=== PATIENT | female | born 1985 | race Caucasian/White ===

== ENCOUNTER 2016-12-29 03:34 | Emergency (ER) | payer SELFPAY ==
[~2016-12-29] VITALS: Ht 167.6 cm; Wt 58.5 kg
--- NOTE | 2016-12-29 04:36 | NUR ---
Patient discharged to home in stable conditon. Written and verbal after care instructions given. Patient verbalizes understanding of instructions. Walked out of ER with steady gait
[2016-12-29 04:47] LABS: *URINE HCG, QUAL NEGATIVE (NEGATIVE)
== END 2016-12-29 04:49 | disposition home or self-care (01) ==
LOC: ER 03:34
DX: R19.7 Diarrhea, unspecified (principal); R11.0 Nausea; R42 Dizziness and giddiness; Z88.6 Allergy status to analgesic agent; Z88.1 Allergy status to other antibiotic agents
CPT/HCPCS: 84703; 99283; A4663

== ENCOUNTER 2018-08-10 12:05 | Emergency (ER) | payer SELFPAY ==
[~2018-08-10] VITALS: Ht 167.6 cm; Wt 55.3 kg
== END 2018-08-10 13:13 | disposition home or self-care (01) ==
LOC: ER 12:08
DX: I88.8 Other nonspecific lymphadenitis (principal); Z88.6 Allergy status to analgesic agent; Z88.2 Allergy status to sulfonamides; Z88.8 Allergy status to other drugs, medicaments and biological substances
CPT/HCPCS: A4663

== ENCOUNTER 2018-11-02 17:36 | Emergency (ER) | payer MEDICAID ==
[~2018-11-02] VITALS: Ht 167.6 cm; Wt 56.7 kg
[2018-11-02 19:02] LABS: *BILIRUBIN,URIN 2+ (NEGATIVE); *BLOOD, URINE 3+ (NEGATIVE); *CLARITY,URINE TURBID (CLEAR); *COLOR,URINE RED (YELLOW); *KETONES,URINE 1+ (NEGATIVE); LEUKOCYTE ESTERASE ,URINE 3+ (NEGATIVE); NITRITE, URINE POSITIVE (NEGATIVE); PH,URINE 8.5 (5.0-8.0); UGLUCOSE NEGATIVE (NEGATIVE)
[2018-11-02 19:11] LABS: *URINE HCG, QUAL NEGATIVE (NEGATIVE)
[2018-11-02 19:18] LABS: BACTERIA,URINE NONE SEEN /HPF (NONE SEEN); RBC,URINE TNTC /HPF (0-3); SQUAMOUS EPITHELIAL CELL,UR NONE SEEN /HPF (NONE SEEN)
[2018-11-02] MEDS ORDERED: CEFTRIAXONE 1 G in IV DEXTROSE 5% 50 ML IV ONE (19:30)
[2018-11-02] MEDS ORDERED: IV NORMAL SALINE 1000 ML BAG IV ONE ×2 (19:30→20:45)
[2018-11-02] MEDS ORDERED: CEFTRIAXONE 1 G VIAL ONE (19:33)
[2018-11-02] MEDS ORDERED: HYDROMORPHONE 1 MG/1 ML DISP.SYRIN IV ONE (19:45)
[2018-11-02] MEDS ORDERED: ONDANSETRON IV *ER 4 MG/2 ML VIAL IV ONE (19:45)
[2018-11-02] MEDS ORDERED: HYDROMORPHONE 1 MG/1 ML DISP.SYRIN ONE (19:49)
[2018-11-02] MEDS ORDERED: ONDANSETRON 4 MG/2 ML VIAL ONE (19:49)
[2018-11-02] MEDS ORDERED: ACETAMINOPHEN 325 MG TABLET PO ONE (20:00)
[2018-11-02] MEDS ORDERED: ACETAMINOPHEN 325 MG TABLET ONE (20:01)
[2018-11-02] MEDS ORDERED: ACETAMINOPHEN/CODEINE 300-30 MG TABLET ONE (20:13)
[2018-11-02] MEDS ORDERED: ACETAMINOPHEN/CODEINE 300-30 MG TABLET PO ONE (20:15)
[2018-11-02 21:52] VITALS: BP 106/68
--- NOTE | 2018-11-02 21:53 | NUR ---
IV removed. Catheter intact and site benign. Pressure and 4x4 gauze applied to site. No bleeding noted.
--- NOTE | 2018-11-02 21:55 | NUR ---
Patient discharged to home in stable conditon. Written and verbal after care instructions given. Patient verbalizes understanding of instructions. Patient instructed not to drive. Patient [place] Patient ambulated out of ER with stable gait.
== END 2018-11-02 21:56 | disposition home or self-care (01) ==
LOC: ER 17:36
DX: N39.0 Urinary tract infection, site not specified (principal); Z88.2 Allergy status to sulfonamides; Z88.8 Allergy status to other drugs, medicaments and biological substances
CPT/HCPCS: 81001; 84703; 96365; 96375; 99283; J0696; J1170; J2405; J7060; A4663; J7030

== ENCOUNTER 2019-09-28 10:28 | Emergency (ER) | payer SELFPAY ==
[~2019-09-28] VITALS: Ht 167.6 cm; Wt 59.0 kg
[2019-09-28 10:56] LABS: *URINE HCG, QUAL NEGATIVE (NEGATIVE)
[2019-09-28 10:57] LABS: *BILIRUBIN,URIN NEGATIVE (NEGATIVE); *BLOOD, URINE TRACE LYSED (NEGATIVE); *CLARITY,URINE CLEAR (CLEAR); *COLOR,URINE LIGHT YELLOW (YELLOW); *KETONES,URINE NEGATIVE (NEGATIVE); *UROBILINOGEN,URINE 0.2 E.U./dl (NORMAL); LEUKOCYTE ESTERASE ,URINE NEGATIVE (NEGATIVE); NITRITE, URINE NEGATIVE (NEGATIVE); PH,URINE 7.5 (5.0-8.0); UGLUCOSE NEGATIVE (NEGATIVE)
[2019-09-28] MEDS ORDERED: ONDANSETRON 4 MG/2 ML VIAL IV ONE (11:00)
[2019-09-28] MEDS ORDERED: FAMOTIDINE. 20 MG/2 ML VIAL IV ONE ×2 (11:00→11:10)
[2019-09-28] MEDS ORDERED: IV NORMAL SALINE 1000 ML BAG IV ONE (11:00)
[2019-09-28 11:03] LABS: SQUAMOUS EPITHELIAL CELL,UR FEW /HPF (NONE SEEN)
[2019-09-28 11:04] LABS: BACTERIA,URINE NONE SEEN /HPF (NONE SEEN); RBC,URINE 0-3 /HPF (0-3); WBC,URINE 0-3 /HPF (0-3)
[2019-09-28] MEDS ORDERED: ONDANSETRON 4 MG/2 ML VIAL ONE (11:10)
--- NOTE | 2019-09-28 11:22 | NUR ---
PT IS IN ROOM #2A. DR LEAVITT EVALUATED THE PT.
[2019-09-28 11:25] LABS: BASOPHILS % (AUTO) 0.5 % (0.0-2.0); EOSINOPHILS % (AUTO) 1.1 % (0.0-7.0); HEMATOCRIT 36.4 % (31.2-41.9); HEMOGLOBIN 12.5 g/dL (10.9-14.3); LYMPHOCYTES # (AUTO) 1.7 K/uL (20.0-40.0); LYMPHOCYTES % (AUTO) 43.5 % (20.5-51.5); MEAN CORPUSCULAR HEMOGLOBIN 30.1 uug (24.7-32.8); MEAN CORPUSCULAR HGB CONC 34 g/dL (32.3-35.6); MEAN CORPUSCULAR VOLUME 87.9 fL (75.5-95.3); MONOCYTES # (AUTO) 0.3 K/uL (2.0-10.0); MONOCYTES % (AUTO) 7.5 % (0.0-11.0); NEUTROPHILS # (AUTO) 1.9 K/uL (1.8-8.9); NEUTROPHILS % (AUTO) 47.4 % (38.5-71.5); PLATELET COUNT (AUTO) 179 K/uL (179-408); RED BLOOD CELL COUNT(AUTO) 4.14 MIL/uL (3.63-4.92); WHITE BLOOD COUNT (AUTO) 3.9 K/uL (3.8-11.8)
[2019-09-28 11:29] LABS: CREATININE 0.6 mg/dL (0.6-1.3); POTASSIUM 3.5 mmol/L (3.5-5.1)
[2019-09-28 11:35] LABS: BILIRUBIN,DIRECT 0.1 mg/dL (0.0-0.2); BILIRUBIN,TOTAL 0.6 mg/dL (0.2-1.0); TOTAL PROTEIN, SERUM 7.2 g/dL (6.4-8.2)
--- NOTE | 2019-09-28 12:13 | NUR ---
PT WAS D/C'd TO HOME. D/C INSTRUCTIONS GIVEN TO THE PT.
[2019-09-28 12:14] VITALS: BP 122/72
== END 2019-09-28 12:14 | disposition home or self-care (01) ==
LOC: ER 10:33
DX: E86.0 Dehydration (principal); G43.909 Migraine, unspecified, not intractable, without status migrainosus; Z88.2 Allergy status to sulfonamides; Z88.8 Allergy status to other drugs, medicaments and biological substances
CPT/HCPCS: 36415; 80048; 80076; 81000; 81001; 83690; 84703; 85025; 96374; 96375; 99283; J2405; J3490; A4663; J7030

== ENCOUNTER 2019-11-09 09:42 | Emergency (ER) | payer SELFPAY ==
[~2019-11-09] VITALS: Ht 167.6 cm; Wt 63.5 kg
--- NOTE | 2019-11-09 10:02 | NUR ---
DOCTOR MARTIN IN THE ROOM FOR EVALUATION OF THE PATIENT.
--- NOTE | 2019-11-09 10:03 | NUR ---
PATIENT STATING N/V THROUGHOUT NIGHT AFTER DRINKING A GLASS OF WINE.
[2019-11-09] MEDS ORDERED: ONDANSETRON 4 MG/2 ML VIAL IV ONE (10:15)
[2019-11-09] MEDS ORDERED: IV NORMAL SALINE 500 ML BAG IV ONE (10:15)
--- NOTE | 2019-11-09 10:15 | NUR ---
PATIENT TAKEN TO BATHROOM FOR PREGANCY TEST
[2019-11-09] MEDS ORDERED: ONDANSETRON 4 MG/2 ML VIAL ONE (10:21)
[2019-11-09 10:39] LABS: *URINE HCG, QUAL NEGATIVE (NEGATIVE)
[2019-11-09 10:43] LABS: *BILIRUBIN,URIN NEGATIVE (NEGATIVE); *BLOOD, URINE NEGATIVE (NEGATIVE); *CLARITY,URINE CLOUDY (CLEAR); *COLOR,URINE YELLOW (YELLOW); *KETONES,URINE NEGATIVE (NEGATIVE); *UROBILINOGEN,URINE 0.2 E.U./dl (NORMAL); LEUKOCYTE ESTERASE ,URINE NEGATIVE (NEGATIVE); NITRITE, URINE NEGATIVE (NEGATIVE); PH,URINE >=9.0 (5.0-8.0); UGLUCOSE NEGATIVE (NEGATIVE)
[2019-11-09 10:45] LABS: CARBON DIOXIDE 33 mmol/L (21-32); CHLORIDE 105 mmol/L (98-107); CREATININE 0.5 mg/dL (0.6-1.3); GLUCOSE 95 mg/dL (74-106); POTASSIUM 3.6 mmol/L (3.5-5.1); UREA NITROGEN, BLOOD 11 mg/dL (7-18)
[2019-11-09 10:47] LABS: BASOPHILS % (AUTO) 0.9 % (0.0-2.0); EOSINOPHILS % (AUTO) 0.6 % (0.0-7.0); HEMATOCRIT 36.9 % (31.2-41.9); HEMOGLOBIN 12.9 g/dL (10.9-14.3); LYMPHOCYTES # (AUTO) 1.3 K/uL (20.0-40.0); LYMPHOCYTES % (AUTO) 34.9 % (20.5-51.5); MEAN CORPUSCULAR HEMOGLOBIN 30.4 uug (24.7-32.8); MEAN CORPUSCULAR HGB CONC 35 g/dL (32.3-35.6); MEAN CORPUSCULAR VOLUME 87.2 fL (75.5-95.3); MONOCYTES # (AUTO) 0.3 K/uL (2.0-10.0); MONOCYTES % (AUTO) 6.8 % (0.0-11.0); NEUTROPHILS # (AUTO) 2.1 K/uL (1.8-8.9); NEUTROPHILS % (AUTO) 56.8 % (38.5-71.5); PLATELET COUNT (AUTO) 168 K/uL (179-408); RED BLOOD CELL COUNT(AUTO) 4.24 MIL/uL (3.63-4.92); WHITE BLOOD COUNT (AUTO) 3.8 K/uL (3.8-11.8)
[2019-11-09 10:50] LABS: ALANINE AMINOTRANSFERASE 17 U/L (14-59); ALKALINE PHOSPHATASE 55 U/L (50-136); ASPARTATE AMINOTRANSFERASE 13 U/L (15-37); BILIRUBIN,DIRECT 0.1 mg/dL (0.0-0.2); BILIRUBIN,TOTAL 0.3 mg/dL (0.2-1.0); LIPASE 80 U/L (73-393); TOTAL PROTEIN, SERUM 7.8 g/dL (6.4-8.2)
[2019-11-09 11:04] LABS: BACTERIA,URINE NONE SEEN /HPF (NONE SEEN); RBC,URINE 0-3 /HPF (0-3); SQUAMOUS EPITHELIAL CELL,UR NONE SEEN /HPF (NONE SEEN); URINE AMORPHOUS PHOSPHATES MANY /HPF; WBC,URINE 0-3 /HPF (0-3)
--- NOTE | 2019-11-09 11:54 | NUR ---
PATIENT GIVEN DISCHARGE PAPERWORK. PATIENT UNDERSTOOD AND SIGNED
--- NOTE | 2019-11-09 11:56 | NUR ---
PATIENT TOLERATED PO INTAKE AND NO COMPLAINTS OF NAUSEA
[2019-11-09 11:57] VITALS: BP 100/59
== END 2019-11-09 11:58 | disposition home or self-care (01) ==
LOC: ER 09:42
DX: R10.9 Unspecified abdominal pain (principal); E86.0 Dehydration; R11.2 Nausea with vomiting, unspecified; G43.909 Migraine, unspecified, not intractable, without status migrainosus; Z88.6 Allergy status to analgesic agent; Z88.8 Allergy status to other drugs, medicaments and biological substances
CPT/HCPCS: 36415; 80048; 80076; 81000; 81001; 83690; 84703; 85025; 96361; 96374; 99283; J2405; A4663; J7040

== ENCOUNTER 2021-05-25 20:20 | Emergency (ER) | payer OTHER ==
[~2021-05-25] VITALS: Ht 167.6 cm; Wt 55.8 kg
[2021-05-25 21:15] VITALS: BP 99/74
--- NOTE | 2021-05-25 21:15 | NUR ---
Patient agitated in room, yelling at me for being placed on isolation protocol d/t her history of flu-like symptoms. I attempted to explain to the patient that reasoning behind the isolation protocol, she requested to go AMA.
--- NOTE | 2021-05-25 21:15 | NUR ---
Patient does not wish to proceed with medical care recommended by Dr. DURON. Patient given information related to possible complications, up to and including , which could occur as a result of leaving the hospital at this time. Patient verbalizes understanding of risks involved due to leaving against medical advice. Patient has signed AMA form.
== END 2021-05-25 21:15 | disposition left against medical advice (07) ==
LOC: ER 20:20
DX: R09.89 Other specified symptoms and signs involving the circulatory and respiratory systems (principal); Z53.29 Procedure and treatment not carried out because of patient's decision for other reasons
CPT/HCPCS: A4663

== ENCOUNTER 2023-01-11 13:17 | Emergency (ER) | payer OTHER ==
[~2023-01-11] VITALS: Ht 167.6 cm; Wt 56.7 kg
--- NOTE | 2023-01-11 13:24 | NUR ---
Patient was seen ambulating with slow steady gait to ER bed 4B, respiration:easy, non-labored, NAD.
--- NOTE | 2023-01-11 13:34 | NUR ---
[email or web address], medical screening exam in progress
[2023-01-11] MEDS ORDERED: diphenhydrAMINE 25 MG CAP PO ONE ×2 (13:45→14:05)
[2023-01-11] MEDS ORDERED: IV NORMAL SALINE 500 ML BAG IV ONE (13:45)
[2023-01-11] MEDS ORDERED: ONDANSETRON 4 MG/2 ML VIAL ONE (14:19)
[2023-01-11] MEDS ORDERED: ACETAMINOPHEN ES 500 MG TABLET ONE (14:19)
[2023-01-11] MEDS ORDERED: ONDANSETRON 4 MG/2 ML VIAL IV ONE (14:30)
[2023-01-11] MEDS ORDERED: ACETAMINOPHEN 325 MG TABLET PO ONE (14:30)
[2023-01-11] MEDS: LIDOCAINE VISCUS 2% 15 ML UDC MM ONE ×2 (14:31→14:34)
[2023-01-11] MEDS: MAG HYDROX/AL HYDROX/SIMETH 30 ML LIQUID UDC PO ONE ×2 (14:34→15:32)
--- NOTE | 2023-01-11 14:36 | NUR ---
Patient refused po Tylenol, po Maalox & po lidocaine notified.
--- NOTE | 2023-01-11 14:47 | NUR ---
Patient is resting comfortably on gurney with eyes closed and no actual vomiting seen since patient's arrival to ER.
--- NOTE | 2023-01-11 15:11 | NUR ---
Patient said that she feels "a little better", MD notified.
[2023-01-11 15:27] LABS: *URINE HCG, QUAL NEGATIVE (NEGATIVE)
[2023-01-11] MEDS ORDERED: IV NORMAL SALINE 1000 ML BAG IV ONE (15:30)
[2023-01-11] MEDS ORDERED: MAG HYDROX/AL HYDROX/SIMETH 30 ML LIQUID UDC ONE (15:30)
--- NOTE | 2023-01-11 16:31 | NUR ---
IV removed by MD herself. Catheter intact and site benign. Pressure and 4x4 gauze applied to site. No bleeding noted.
[2023-01-11] MEDS ORDERED: ONDA4TAB5 PO (16:32)
--- NOTE | 2023-01-11 16:33 | NUR ---
Patient discharged to home by Dr Veras herself. Patient left ER in stable condition and brisk steady gait. Written and verbal after care instructions given to patient and adult female nurse friend. Patient verbalized understanding and compliance of instructions. Stressed follow up with primary doctor or return to ER for worsening s/s.
[2023-01-11 17:09] VITALS: BP 121/60
== END 2023-01-11 16:33 | disposition home or self-care (01) ==
LOC: ER 13:19
DX: F10.10 Alcohol abuse, uncomplicated (principal); R11.2 Nausea with vomiting, unspecified; G43.909 Migraine, unspecified, not intractable, without status migrainosus; Z79.1 Long term (current) use of non-steroidal anti-inflammatories (NSAID); Z88.2 Allergy status to sulfonamides; Z88.8 Allergy status to other drugs, medicaments and biological substances; Z79.899 Other long term (current) drug therapy; Y90.9 Presence of alcohol in blood, level not specified
CPT/HCPCS: 99283; 96374; 84703; Q0163; J2405; J7040 ×2; A4663; A9150

== ENCOUNTER 2024-04-03 08:35 | Emergency (ER) | payer MEDICAID, OTHER ==
[~2024-04-03] VITALS: Ht 167.6 cm; Wt 56.7 kg
[~2024-04-03 08:35] MED LIST: ONDA4TAB5 PO
[2024-04-03 08:59] LABS: *BLOOD, URINE 3+ (NEGATIVE); *CLARITY,URINE CLOUDY (CLEAR); *COLOR,URINE Brown (YELLOW); *KETONES,URINE 2+ (NEGATIVE); LEUKOCYTE ESTERASE ,URINE 1+ (NEGATIVE); NITRITE, URINE POSITIVE (NEGATIVE); UGLUCOSE NEGATIVE (NEGATIVE)
[2024-04-03 09:04] LABS: *BILIRUBIN,URIN 3+ (NEGATIVE); *PROTEIN,URINE 3+ (NEGATIVE)
[2024-04-03 09:12] LABS: BACTERIA,URINE MANY /HPF (NONE SEEN); RBC,URINE TNTC /HPF (0-3); SQUAMOUS EPITHELIAL CELL,UR MODERATE /HPF (NONE SEEN); WBC,URINE 50-80 /HPF (0-3)
[2024-04-03] MEDS ORDERED: ONDANSETRON ODT 4 MG TAB.RAPDIS ONE (09:12)
[2024-04-03] MEDS: ONDANSETRON ODT 4 MG TAB.RAPDIS SL ONE (09:29)
[2024-04-03] MEDS ORDERED: CIPR250T4 PO (09:29)
[2024-04-03] MEDS ORDERED: CIPROFLOXACIN HCL 250 MG TABLET ONE (09:30)
[2024-04-03] MEDS: CIPROFLOXACIN HCL 250 MG TABLET PO ONE (09:50)
[2024-04-03 09:51] VITALS: BP 104/72; TEMP 98; O2SAT 99
== END 2024-04-03 09:52 | disposition home or self-care (01) ==
LOC: ER 08:37
DX: N39.0 Urinary tract infection, site not specified (principal); G43.909 Migraine, unspecified, not intractable, without status migrainosus; Z98.890 Other specified postprocedural states; Z79.1 Long term (current) use of non-steroidal anti-inflammatories (NSAID); Z79.899 Other long term (current) drug therapy; Z88.2 Allergy status to sulfonamides
CPT/HCPCS: A4606; A4663; Q0162

== ENCOUNTER 2024-05-01 18:53 | Emergency (ER) | payer MEDICAID ==
[~2024-05-01] VITALS: Ht 167.6 cm; Wt 61.2 kg
[~2024-05-01 18:53] MED LIST changes: +CIPR250T4 PO
[2024-05-01] MEDS ORDERED: METOCLOPRAMIDE HCL 10 MG TABLET ONE (19:37)
[2024-05-01] MEDS ORDERED: FAMOTIDINE 20 MG TABLET ONE (19:37)
[2024-05-01] MEDS: FAMOTIDINE 20 MG TABLET PO ONE (19:48)
[2024-05-01] MEDS: METOCLOPRAMIDE HCL 10 MG TABLET PO ONE (19:48)
[2024-05-01 20:00] LABS: BASOPHILS % (AUTO) 0.4 % (0.0-2.0); EOSINOPHILS % (AUTO) 0.3 % (0.0-7.0); HEMATOCRIT 34.4 % (31.2-41.9); HEMOGLOBIN 11.5 g/dL (10.9-14.3); LYMPHOCYTES # (AUTO) 1.3 K/uL (0.8-4.8); LYMPHOCYTES % (AUTO) 17.4 % (20.5-51.5); MEAN CORPUSCULAR HEMOGLOBIN 29.3 uug (24.7-32.8); MEAN CORPUSCULAR HGB CONC 34 g/dL (32.3-35.6); MEAN CORPUSCULAR VOLUME 87.5 fL (75.5-95.3); MONOCYTES # (AUTO) 0.4 K/uL (0.1-1.30); MONOCYTES % (AUTO) 5.3 % (0.0-11.0); NEUTROPHILS # (AUTO) 5.8 K/uL (1.8-8.9); NEUTROPHILS % (AUTO) 76.6 % (38.5-71.5); PLATELET COUNT (AUTO) 192 K/uL (179-408); RED BLOOD CELL COUNT(AUTO) 3.93 MIL/uL (3.63-4.92); RED CELL DISTRIBUTION WIDTH 13.7 % (12.3-17.7); WHITE BLOOD COUNT (AUTO) 7.6 K/uL (3.8-11.8)
[2024-05-01 20:14] LABS: DIFFERENTIAL COMMENT 1
[2024-05-01 20:20] LABS: CARBON DIOXIDE 28 mmol/L (21-32); CHLORIDE 106 mmol/L (98-107); CREATININE 0.5 mg/dL (0.6-1.3); GLUCOSE 110 mg/dL (74-106); POTASSIUM 3.8 mmol/L (3.5-5.1); SODIUM SERUM 142 mmol/L (136-145); UREA NITROGEN, BLOOD 10 mg/dL (7-18)
[2024-05-01 20:36] LABS: ALANINE AMINOTRANSFERASE 15 U/L (14-59); ALBUMIN 3.7 g/dL (3.4-5.0); ALKALINE PHOSPHATASE 47 U/L (50-136); ASPARTATE AMINOTRANSFERASE 8 U/L (15-37); BILIRUBIN,TOTAL 0.3 mg/dL (0.2-1.0); LIPASE 24 U/L (16-77); TOTAL PROTEIN, SERUM 6.9 g/dL (6.4-8.2)
[2024-05-01] MEDS ORDERED: HYDR-501 PO (21:00)
[2024-05-01] MEDS ORDERED: FAMO-132 PO (21:02)
[2024-05-01 21:05] LABS: PREGNANCY TEST SERUM QUAN < 1 miul/L (0-6)
[2024-05-01 22:02] VITALS: BP 105/73; TEMP 98.6; O2SAT 99
== END 2024-05-01 22:02 | disposition home or self-care (01) ==
LOC: ER 18:54
DX: K21.9 Gastro-esophageal reflux disease without esophagitis (principal); F43.9 Reaction to severe stress, unspecified; R07.89 Other chest pain; R51.9 Headache, unspecified; R10.2 Pelvic and perineal pain; T78.2XXA Anaphylactic shock, unspecified, initial encounter; R11.0 Nausea; Z98.890 Other specified postprocedural states; Z79.891 Long term (current) use of opiate analgesic; Z79.899 Other long term (current) drug therapy; Z60.2 Problems related to living alone; Z88.2 Allergy status to sulfonamides; Y92.89 Other specified places as the place of occurrence of the external cause
CPT/HCPCS: 36415; 83690; 84484; 85025; 93005; A4606; A4663; J8597